=== PATIENT | female | born 1975 | race Caucasian/White ===

== ENCOUNTER 2016-12-01 16:45 | Emergency (ER) | payer OTHER ==
[~2016-12-01] VITALS: Ht 172.7 cm; Wt 111.6 kg
[~2016-12-01 16:45] MED LIST: APIDRA SQ; ASPIR-LOW81 M1 PO; BAC PO; GLU850 PO; LANTI SQ; NEU100 PO; V5 PO; ZOC20 PO
[2016-12-01 20:29] LABS: microscopic required? YES; urine erythrocyte TRACE (NEGATIVE)
[2016-12-01 20:34] LABS: PLATELET COUNT 247 x10^3mcL (130-400); RED CELL DISTRIBUTION WIDTH 12.4 % (11.5-14.5)
[2016-12-01 20:43] LABS: CALCIUM 9.1 mg/dL (8.5-10.1); CARBON DIOXIDE 27.6 mmol/L (21-32); CHLORIDE SERUM 101 mmol/L (98-107); CREATININE SERUM 0.6 mg/dL (0.6-1.0); GFR1 > 60 mL/min; GLUCOSE SERUM 334 mg/dL (74-106); POTASSIUM SERUM 3.8 mmol/L (3.5-5.1); SODIUM SERUM 137 mmol/L (136-145)
[2016-12-01 20:48] LABS: ALBUMIN 3.6 g/dL (3.4-5.0); ALKALINE PHOSPHATASE 120 U/L (46-116); ALT/SGPT 45 U/L (14-59); AST/SGOT 23 U/L (15-37); BILIRUBIN TOTAL 0.87 mg/dL (0.20-1.00)
[2016-12-01 21:12] LABS: BAND NEUTROPHIL 1 % (0-10); MONOCYTE 5 % (0-7); SEGMENTED NEUTROPHILS 85 % (37-75)
[2016-12-01 21:13] LABS: BASOPHIL 0 % (0-2)
[2016-12-01 22:38] VITALS: BP 130/75
== END 2016-12-01 22:39 | disposition home or self-care (01) ==
LOC: ED 16:45
PROVIDERS: Emergency Medicine
DX: N39.0 Urinary tract infection, site not specified (principal); E11.9 Type 2 diabetes mellitus without complications
CPT/HCPCS: 82962; J1885; J2270; J2405; J7030

== ENCOUNTER 2017-06-04 23:22 | Emergency (ER) | payer OTHER ==
[~2017-06-04] VITALS: Ht 175.3 cm; Wt 120.2 kg
[2017-06-05 02:51] VITALS: BP 135/99
== END 2017-06-05 01:20 | disposition home or self-care (01) ==
LOC: ED 23:22
DX: L60.0 Ingrowing nail (principal)
CPT/HCPCS: A4570

== ENCOUNTER 2017-08-05 21:55 | Emergency (ER) | payer OTHER ==
[2017-08-06 00:20] VITALS: BP 121/92
== END 2017-08-06 00:13 | disposition home or self-care (01) ==
LOC: ED 21:55
DX: S39.82XA Other specified injuries of lower back, initial encounter (principal); E78.00 Pure hypercholesterolemia, unspecified; I10 Essential (primary) hypertension; E11.9 Type 2 diabetes mellitus without complications; Z88.0 Allergy status to penicillin; Z91.040 Latex allergy status; W18.30XA Fall on same level, unspecified, initial encounter; Y93.89 Activity, other specified; Y99.8 Other external cause status; Y92.89 Other specified places as the place of occurrence of the external cause
CPT/HCPCS: J3010

== ENCOUNTER 2017-10-25 07:32 | Emergency (ER) | payer OTHER ==
[~2017-10-25] VITALS: Ht 172.7 cm; Wt 108.0 kg
[2017-10-25 07:37] VITALS: Ht 172.7 cm; Wt 108.0 kg
[2017-10-25 08:13] LABS: RED CELL DISTRIBUTION WIDTH 12.2 % (11.5-14.5)
[2017-10-25 08:16] LABS: BASOPHIL % 0.3 % (0-2); PLATELET COUNT 263 x10^3mcL (130-400)
[2017-10-25 08:18] LABS: CALCIUM 8.6 mg/dL (8.5-10.1); CARBON DIOXIDE 27.8 mmol/L (21-32); CHLORIDE SERUM 103 mmol/L (98-107); CREATININE SERUM 0.6 mg/dL (0.6-1.0); GFR1 > 60 mL/min; GLUCOSE SERUM 350 mg/dL (74-106); SODIUM SERUM 139 mmol/L (136-145)
[2017-10-25 08:25] LABS: ALBUMIN 3.4 g/dL (3.4-5.0); ALKALINE PHOSPHATASE 121 U/L (46-116); ALT/SGPT 45 U/L (14-59); AST/SGOT 29 U/L (15-37); BILIRUBIN TOTAL 0.4 mg/dL (0.20-1.00); TOTAL PROTEIN, SERUM 7.8 g/dL (6.4-8.2)
[2017-10-25 09:46] VITALS: BP 120/68
== END 2017-10-25 09:46 | disposition home or self-care (01) ==
LOC: ED 07:32
PROVIDERS: Specialist
DX: M94.0 Chondrocostal junction syndrome [Tietze] (principal); I10 Essential (primary) hypertension; E11.9 Type 2 diabetes mellitus without complications; E78.00 Pure hypercholesterolemia, unspecified; J45.909 Unspecified asthma, uncomplicated; Z88.0 Allergy status to penicillin
CPT/HCPCS: 36415; 83880; J1170; J1885; Q0092

== ENCOUNTER 2018-09-07 13:44 | Emergency (ER) | payer OTHER ==
[~2018-09-07] VITALS: Ht 172.7 cm; Wt 105.7 kg
[2018-09-07 13:52] VITALS: Ht 172.7 cm; Wt 105.7 kg
[2018-09-07 16:44] VITALS: BP 132/68
== END 2018-09-07 16:44 | disposition home or self-care (01) ==
LOC: ED 13:44
DX: S83.91XA Sprain of unspecified site of right knee, initial encounter (principal); M79.10 Myalgia, unspecified site; J45.909 Unspecified asthma, uncomplicated; I10 Essential (primary) hypertension; E11.9 Type 2 diabetes mellitus without complications; E78.00 Pure hypercholesterolemia, unspecified; I25.2 Old myocardial infarction; Z88.0 Allergy status to penicillin; Z91.040 Latex allergy status; W19.XXXA Unspecified fall, initial encounter; Y93.89 Activity, other specified; Y92.89 Other specified places as the place of occurrence of the external cause; Y99.8 Other external cause status
CPT/HCPCS: J1885; Q0162

== ENCOUNTER 2020-09-12 11:39 | Emergency (ER) | payer OTHER ==
[~2020-09-12] VITALS: Ht 175.3 cm; Wt 103.0 kg
[2020-09-12 12:07] VITALS: BP 112/69; Ht 175.3 cm; Wt 103.0 kg
== END 2020-09-12 13:10 | disposition home or self-care (01) ==
LOC: ED 11:39
DX: S92.511A Displaced fracture of proximal phalanx of right lesser toe(s), initial encounter for closed fracture (principal); S93.401A Sprain of unspecified ligament of right ankle, initial encounter; W22.8XXA Striking against or struck by other objects, initial encounter; Y93.89 Activity, other specified; Y92.89 Other specified places as the place of occurrence of the external cause; Y99.8 Other external cause status